=== PATIENT | male | born 1985 | race Two or more races ===

== ENCOUNTER 2016-11-01 21:46 | Emergency (ER) | payer OTHER ==
[~2016-11-01] VITALS: Ht 175.3 cm; Wt 99.8 kg
[2016-11-01 21:52] VITALS: BP 131/85
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
[2016-11-01 22:20] VITALS: BP 122/79
== END 2016-11-01 22:20 ==
LOC: EDBD 21:46 → EMR 21:56
DX: S01.01XA Laceration without foreign body of scalp, initial encounter (principal); Y04.0XXA Assault by unarmed brawl or fight, initial encounter; Y92.89 Other specified places as the place of occurrence of the external cause; J45.909 Unspecified asthma, uncomplicated; F31.9 Bipolar disorder, unspecified; Z91.030 Bee allergy status; Z91.010 Allergy to peanuts; F17.200 Nicotine dependence, unspecified, uncomplicated
CPT/HCPCS: 99283